=== PATIENT | male | born 1930 | race Caucasian/White ===

== ENCOUNTER 2017-07-09 23:00 | Emergency (ER) | payer MEDICARE ==
[~2017-07-09 23:00] MED LIST: ACET325T51 PO; ACETAMINOPHEN PR; ASPI325T32 PO; ATOR20TA65 PO; BISA10SU61 RC; CLOT60CR TOPICAL; GABA600T2 PO; HYDR-4003 PO; INSLIS SUBQ; LAN125 PO; MAGN400O4 PO; MAGN400T23 PO; METO50TA3 PO; OMEP20CA11 PO; Oxygen NASAL; POLY17PO6 PO; PRAM0.252 PO; RISP1SOL PO
[2017-07-09] MEDS ORDERED: levoFLOXacin Inj 250 MG in IV Premix 1 EACH IV ONE (23:01)
[2017-07-09] MEDS ORDERED: Piperacillin-Tazo 3.375 Gm Inj 3.375 GM in Dextrose 5% Minibag Plus 50 ML IV ONE (23:01)
--- NOTE | 2017-07-09 23:13 | ED.REPORT ---
HPI-General Illness Date of Service Jul 09, 2017 ED Provider: Dr. Craft History of Present Illness: See paper record. Pt is an 87 y/o male presenting to the ED via EMS due to fever onset today. Code status: DNR Nursing Notes Stated Complaint: FEVER Nursing Notes Reviewed: Yes Allergies: Coded Allergies: Sulfa (Sulfonamide Antibiotics) (Verified Allergy, Severe, ITCHING, ) meperidine (Verified Allergy, Severe, HALLUC, 11/04/15) oxycodone (Verified Allergy, Severe, "CLIMBS THE WALL" (HYPERACTIVITY), ) cephalexin (Unverified Allergy, Unknown, UNKNOWN, 11/04/15) metformin (Unverified Allergy, Unknown, UNKNOWN, 12/04/14) rosiglitazone (Unverified Allergy, Unknown, UNKNOWN, 12/04/14) sertraline (Verified Allergy, Unknown, UNKNOWN, 12/04/14) trifluoperazine (Verified Allergy, Unknown, UNKNOWN, 12/04/14) Uncoded Allergies: shellfish (Allergy, Unknown, UNKNOWN, 07/12/14) Scheduled ([Oxygen ]) 2 L NASAL continously daily Aspirin (Aspirin) 325 Mg Tabec 325 MG PO DAILY Atorvastatin Calcium (Atorvastatin Calcium) 20 Mg Tablet 20 MG PO HS Clotrimazole (Athlete's Foot) 1 % Cream..g. 1 APPLIC TOPICAL BID Digoxin (Lanoxin) 0.125 Mg Tablet 0.125 MG PO evening Gabapentin (Gabapentin) 600 Mg Tablet 600 MG PO TID Insulin Human Lispro (HumaLOG U100 Insulin Vial) 100 Unit/Ml Unit 0 UNIT SUBQ WMHS Check blood sugars before meals and at bedtime. Use correction factor only before meals. Blood Sugar Lispro Correction: <151, 0 units; 151-175, 1 unit; 176-200, 2 units; 201-225, 3 units; 226-250, 4 units; 251-275, 5 units; 276-300 , 6 units; 301-325, 7 units; 326-350, 8 units; 351-375, 9 units; 376-400, 10 units; >400, 12 units. Magnesium Oxide (Mag-Oxide) 400 Mg Tablet 400 MG PO BID Metoprolol Tartrate (Metoprolol Tartrate) 50 Mg Tablet 50 MG PO BID Omeprazole (Omeprazole) 20 Mg Capsule.dr 20 MG PO DAILY Pramipexole Dihydrochloride (Mirapex) 0.25 Mg Tablet 0.25 MG PO DAILY Risperidone (Risperidone) 1 Mg/1 Ml Solution 0.25 MG PO BID Scheduled PRN ([Tylenol Sup]) 650 MG UT Q4H PRN PRN For Pain Acetaminophen (Acetaminophen) 325 Mg Tablet 650 MG PO Q4H PRN PRN For Mild Pain or Fever Bisacodyl (Dulcolax Rectal) 10 Mg Supp.rect 10 MG RC DAILY PRN PRN For Constipation Hydrocodone-Acetaminophen 5-325 mg (Hydrocodone-Acetaminophen 5-325 mg) 1 Each Tablet 1 TABLET PO HS PRN PRN For Pain Magnesium Hydroxide (Milk of Magnesia) 400 Mg/5 Ml Oral.susp 400 MG PO MORNING PRN PRN For Constipation Polyethylene Glycol 3350 (Miralax) 17 Gm Powd.pack 17 GM PO PRN For Constipation Risperidone (Risperidone) 1 Mg/1 Ml Solution 0.25 MG PO Q3H PRN PRN For Agitation General Time Seen by MD: 23:13 Chief Complaint Fever Past Medical History Past Medical History Notes: Refer to paper record Past Medical History 1. Chronic atrial fibrillation, not on anticoagulation. 2. Type 2 diabetes mellitus, insulin-requiring. 3. ASPVD with abdominal aortic aneurysm, being monitored. 4. Congestive heart failure, mixed systolic and diastolic, chronic. 5. Obstructive sleep apnea with CPAP. 6. ASCVD status post RCA stent. 7. COPD and chronic respiratory failure, for which he uses home oxygen 2 at night 8. Depression. 9. Hypertension. 10. GERD. 11. History of esophageal strictures. 12. Chronic back pain. 13. Hyperlipidemia. 14. Restless legs. 15. 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 16. Chronic renal disease. 17. History of subdural hematoma due to falls. 18. History of chronic right foot ulcer, only recently healed 19. BPH 20. Dementia Reports: COPD, Coronary artery disease, Diabetes mellitus, GERD, Hyperlipidemia , Hypertension Past Surgical History Umbilical hernia repair by Dr. Carter RCA Stent 2010 Knee replacement Laminectomy Toe amputation EGD w/dilation for Schatzki's ring Reports: Angioplasty, Appendectomy, Cataract surgery Reports: Knee replacement Family History Mother had CHF. Reports: Coronary artery disease Smoking History Former Smoker Social History Alcohol Use: Denies alcohol use Drug Use: Denies drug use Other Social History: Good social support, Lives in [facility] Ambulatory Status Walker Review of Systems Refer to paper chart Physical Exam Refer to paper chart Vital Signs Refer to nursing notes Initial VS: Reviewed, Vital signs abnormal Interpretation & Diagnostics Interpretation & Diagnostics: Refer to paper record Lab Results Interpretation Test 07/09/17 23:05 07/09/17 23:36 White Blood Count 8.7th/mm3 (3.8-10.1) Red Blood Count 4.71mil/mm3 (4.40-5.80) Hemoglobin 14.7g/dL (13.8-17.2) Hematocrit 41.8% (41.0-50.0) Mean Corpuscular Volume 88.7fL (81-100) Mean Corpuscular Hemoglobin 31.2pg (27.0-35.0) Mean Corpuscular Hemoglobin Concent 35.2% (32.0-37.0) Red Cell Distribution Width 13.4% (12.3-15.4) Platelet Count 217bil/L (150-400) Neutrophils (%) (Auto) 67.8% (40-74) Lymphocytes (%) (Auto) 16.2% (14-46) Monocytes (%) (Auto) 11.0% (4-12) Eosinophils (%) (Auto) 4.6% (0-5) Basophils (%) (Auto) 0.3% (0-3) Erythrocyte Sedimentation Rate 38mm/hr (0-30) Prothrombin Time 10.7sec (8.1-12.5) Prothromb Time International Ratio 1.00ratio Activated Partial Thromboplast Time 29.7sec (22.8-33.0) Lactic Acid Level 1.7mmol/L (0.4-2.0) Urine Color Yellow (YELLOW) Urine Appearance Clear (CLEAR,HAZY) Urine pH 6.0 (5.0-8.0) Urine Specific [place] 1.015 (1.003-1.035) Urine Protein 30mg/dL (NEG,TRACE) Urine Glucose (UA) Negativemg/dL (NEGATIVE) Urine Ketones Negativemg/dL (NEGATIVE) Urine Occult Blood Moderate (NEGATIVE) Urine Nitrite Negative (NEGATIVE) Urine Bilirubin Negative (NEGATIVE) Urine Urobilinogen Normalmg/dL (NORMAL) Urine Leukocyte Esterase Negative (NEGATIVE) Urine RBC 3-10/hpf (0-2) Urine WBC 0-5/hpf (0-5) Urine Epithelial Cells Occasional/hpf (NONE-MOD) Urine Crystals None seen (NONE SEEN) Urine Bacteria None/hpf (NONE-FEW) Urine Hyaline Casts None/lpf (NONE) Urine Granular Casts None seen (NONE SEEN) Urine Waxy Casts None seen (NONE SEEN) Urine Red Blood Cell Casts None seen (NONE SEEN) Urine White Blood Cell Casts None seen (NONE SEEN) Urine Mucus None seen (None Seen) Urine Trichomonas None seen (NONE SEEN) Urine Yeast None (NONE SEEN) Urinalysis Comment None Urine Culture Reflexed Not indicated Re-Eval/Medical Decision Med Decision/Clinical Course See paper record. Discharge & Departure Shift Change Sign-Out Patient Care Transferred: No Response to Therapy: Improved Primary Impression: Sepsis Sepsis type: sepsis due to unspecified organism Qualified Code: A41.9 - Sepsis, unspecified organism Additional Impressions: Altered mental status Fever Healthcare-associated pneumonia Disposition: ADMITTED TO HOSPITAL Discharge Condition Condition: Critical Referrals: Kota Singh MD (PCP) Addi Craft MD Jul 09, 2017 23:13 ALIVIA SOLARES Jul 09, 2017 23:18
[2017-07-09] MEDS ORDERED: 0.9% Sodium Chloride 1,000 ML IV ONE (23:15)
[2017-07-09 23:24] LABS: BASOPHILS % (AUTO) 0.3 % (0-3); EOSINOPHILS % (AUTO) 4.6 % (0-5); Mean Corpuscular Hemoglobin 31.2 pg (27.0-35.0); Mean Corpuscular Volume 88.7 fL (81-100); NEUTROPHILS % (AUTO) 67.8 % (40-74); Platelet Count 217 bil/L (150-400)
[2017-07-09 23:41] LABS: ERYTHROCYTE SEDIMENTATION RATE 38 mm/hr (0-30)
[2017-07-09 23:41] LABS: APPEARANCE,URINE CLEAR (CLEAR,HAZY); COLOR,URINE YELLOW (YELLOW); OCCULT BLOOD,URINE MODERATE (NEGATIVE); UROBILINOGEN,URINE NORMAL (NORMAL)
[2017-07-09 23:51] VITALS: PULSE 88; RESP 24; O2SAT 100
[2017-07-09] MEDS: Albuterol-Ipratropium 3 mL Inhalation Solution NEB ONE (23:51)
[2017-07-09] MEDS ORDERED: Acetaminophen IV 1,000 MG in IV Premix 1 EACH IV ONE (23:55)
--- NOTE | 2017-07-10 10:12 | DRSVH ---
PROCEDURE: X-RAY CHEST ONE VIEW, PORTABLE ([id number]) INDICATIONS: 87 year-old male with sepsis and cough. TECHNIQUE: One view of the chest was acquired. COMPARISON: [facility], CR, XR CHEST 1VW (PORTABLE), 01/15/2016, 14:56. [facility], CR, XR CHEST 2VW, 11/14/2015, 17:19. [facility], CR, XR CHEST 1VW (PORTABLE), 10/11, 9:38. FINDINGS: Surgical changes and devices: None. Lungs and pleura: No pleural effusions or pneumothorax. Lungs are clear. Mediastinum: Mediastinal contours appear normal. Heart size is normal. There is aortic atheroscler osis. Bones and chest wall: No suspicious bony lesions. Overlying soft tissues appear unremarkable. IMPRESSION: No acute cardiopulmonary disease. Dictated by: Uri Lindsey M.D. on 07/10/2017 at 7:51 Approved by: Uri Lindsey M.D. on 07/10/2017 at 7:52
== END 2017-07-10 01:00 | disposition admitted as inpatient to this hospital (09) ==
LOC: EDUNIT# 23:00 → EDBD 23:00 → SED 23:00
DX: A41.9 Sepsis, unspecified organism (principal); I12.9 Hypertensive chronic kidney disease with stage 1 through stage 4 chronic kidney disease, or unspecified chronic kidney disease; I50.9 Heart failure, unspecified; N18.9 Chronic kidney disease, unspecified; E11.22 Type 2 diabetes mellitus with diabetic chronic kidney disease; E11.59 Type 2 diabetes mellitus with other circulatory complications; I48.2 Chronic atrial fibrillation; I25.10 Atherosclerotic heart disease of native coronary artery without angina pectoris; J44.9 Chronic obstructive pulmonary disease, unspecified; G47.33 Obstructive sleep apnea (adult) (pediatric); K21.9 Gastro-esophageal reflux disease without esophagitis; E78.5 Hyperlipidemia, unspecified; F03.90 Unspecified dementia, unspecified severity, without behavioral disturbance, psychotic disturbance, mood disturbance, and anxiety; Z79.4 Long term (current) use of insulin; Z79.82 Long term (current) use of aspirin; Z87.891 Personal history of nicotine dependence; Z88.1 Allergy status to other antibiotic agents; Z88.2 Allergy status to sulfonamides; Z88.5 Allergy status to narcotic agent; Z88.8 Allergy status to other drugs, medicaments and biological substances